=== PATIENT | female | born 1995 | race Hispanic/Latino ===

== ENCOUNTER 2024-10-07 10:23 | Inpatient (IN) | payer SELFPAY ==
[2024-10-07] VITALS (61 sets, daily range): BP systolic 89–112; BP diastolic 46–79; PULSE 103–132; RESP 11–49; TEMP 36.6–36.9; O2SAT 94–100; BMI 25.8
--- NOTE | 2024-10-07 11:02 | EDS_ITS ---
HPI History of Present Illness Chief Complaint: Shortness of Breath Narrative Narrative: Chief complaint and HPI: Cough and flulike symptoms. 29-year-old female who is Panamanian-speaking presents for evaluation of cough and flulike symptoms. Despite blindstitch hemmer, patient is a poor historian. Patient states since March she has had shortness of breath and sore throat. States it is progressively worsening. States she was seen at an outlying facility and diagnosed with pneumonia. On Levaquin. She endorses a pruritic rash that she has had since March. Saw PCP and dermatology in which she was diagnosed with eczema. Review of systems: See HPI Medications: As listed on the chart Allergies: As listed on the chart PFSH: Per chart Vital signs: As listed on the chart. Reviewed. Physical exam: Gen: A&O x3, NAD Head: Normocephalic, atraumatic Eyes: No sclera icterus, conjunctiva clear, PERRL, EOMI ENT: TMs clear BL, dry mucous membranes, posterior oropharynx unremarkable, uvula midline, tonsils mildly enlarged bilaterally, no tonsillar exudates Neck: Trachea midline, No JVD, Full ROM, No meningismus CV: Tachycardic, regular rhythm, no murmurs, no peripheral edema Resp: Lungs CTA BL, no w/r/c, + cough GI: Abd soft, non-distended, non-tender, no r/r/g Musc: Full ROM, no deformity Skin: Warm, dry, eczema to the anterior chest as well as scattered on the arms and legs Neuro: Alert, oriented, grossly intact, sensation intact Psych: Cooperative, appropriate mood and affect [facility] Home Medications ?Medication ?Instructions ?Recorded ?Last Taken ?Type clobetasol 0.05 % topical ointment topical 10/07/24 Un known History famotidine 40 mg tablet 40 mg PO QHS PRN 10/07/24 Un known History levofloxacin 750 mg tablet 750 mg PO DAILY 10/07/24 Un known History loratadine 10 mg tablet (Allergy 10 mg PO DAILY Unknown History Relief (loratadine)) triamcinolone acetonide 0.1 % 1 applic topical BID Unknown History topical cream Allergy/AdvReac Type Severity Reaction Status Date / Time No Known Allergies Allergy Verified 10/07/24 10:28 Social History Smoking Status: Never smoker EXAM Physical Exam Const Vital Signs: 10/07/24 10:24 10/07/24 10:24 10/07/24 11:08 Temperature 98.5 F Temperature Source Temporal Pulse Rate 132 H 108 H Respiratory Rate 26 H 30 H Respiratory Effort Normal Non-Labored Respiratory Depth Normal Respiratory Pattern Normal Blood Pressure 112/65 Blood Pressure Mean 80 Pulse Ox 94 98 Oxygen Delivery Method Room Air 10/07/24 11:15 10/07/24 11:28 10/07/24 11:28 Temperature 98.5 F Temperature Source Oral Pulse Rate 104 H 107 H 104 H Respiratory Rate 26 H 26 H 25 H Respiratory Effort Respiratory Depth Respiratory Pattern Tachypnea Blood Pressure 97/59 L 98/57 L Blood Pressure Mean 71 70 Pulse Ox 98 99 Oxygen Delivery Method Room Air 10/07/24 11:30 10/07/24 11:45 10/07/24 12:00 Temperature 98.2 F Temperature Source Oral Pulse Rate 105 H 104 H 106 H Respiratory Rate 11 L 25 H 24 H Respiratory Effort Respiratory Depth Respiratory Pattern Blood Pressure 98/57 L 99/54 L 99/54 L Blood Pressure Mean 71 67 69 Pulse Ox 100 98 98 Oxygen Delivery Method Room Air 10/07/24 12:00 10/07/24 12:06 10/07/24 12:15 Temperature Temperature Source Pulse Rate 112 H Respiratory Rate 36 H Respiratory Effort Respiratory Depth Respiratory Pattern Blood Pressure 89/46 L 105/63 Blood Pressure Mean 54 76 Pulse Ox Oxygen Delivery Method 10/07/24 12:28 10/07/24 12:30 10/07/24 12:45 Temperature Temperature Source Pulse Rate 111 H 108 H 104 H Respiratory Rate 31 H 35 H 39 H Respiratory Effort Respiratory Depth Respiratory Pattern Blood Pressure 104/65 105/59 L Blood Pressure Mean 77 73 Pulse Ox 97 97 97 Oxygen Delivery Method 10/07/24 13:00 10/07/24 13:00 10/07/24 13:15 Temperature 97.9 F Temperature Source Oral Pulse Rate 104 H 104 H 106 H Respiratory Rate 41 H 24 H 37 H Respiratory Effort Respiratory Depth Respiratory Pattern Blood Pressure 99/59 L 107/67 107/67 Blood Pressure Mean 72 80 79 Pulse Ox 97 97 97 Oxygen Delivery Method Room Air 10/07/24 13:38 10/07/24 13:45 10/07/24 14:00 Temperature Temperature Source Pulse Rate 120 H 110 H 112 H Respiratory Rate 31 H 17 33 H Respiratory Effort Respiratory Depth Respiratory Pattern Blood Pressure Blood Pressure Mean Pulse Ox 98 98 Oxygen Delivery Method 10/07/24 14:15 10/07/24 14:30 10/07/24 14:45 Temperature Temperature Source Pulse Rate 108 H 105 H 103 H Respiratory Rate 40 H 39 H 39 H Respiratory Effort Respiratory Depth Respiratory Pattern Blood Pressure 105/77 Blood Pressure Mean 86 Pulse Ox 98 98 98 Oxygen Delivery Method 10/07/24 15:11 Temperature Temperature Source Pulse Rate 108 H Respiratory Rate 31 H Respiratory Effort Respiratory Depth Respiratory Pattern Tachypnea Blood Pressure Blood Pressure Mean Pulse Ox Oxygen Delivery Method MDM MDM MDM Narrative Medical decision making narrative: 29-year-old female who is Panamanian-speaking presents for evaluation of cough and flulike symptoms. Despite blindstitch hemmer, patient is a poor historian. Recently diagnosed and treated for pneumonia. Differential diagnosis includes but is not limited to pneumonia, viral illness, electrolyte abnormality, PE, bronchitis. On presentation, patient is tachycardic and tachypneic. NS bolus and DuoNeb ordered. Laboratory workup ordered including chest x-ray. CBC with mild leukocytosis 11.5. No anemia. Serum negative. D-dimer elevated at 1.49. Cannot rule out PE. CTA chest ordered. CMP with mild dehydration but no ENRIQUE. Patient has mild transaminitis with AST of 64 and an ALT of 42. No right upper quadrant abdominal pain reported or on physical exam. Strep PCR negative. [place] negative. COVID, flu, RSV negative. Chest x-ray was personally reviewed and interpreted by sd, ED physician. CT of the chest is negative for PE. Patient has multifocal pneumonia. Rocephin and azithromycin ordered. Patient has mild mediastinal lymphadenopathy, nonspecific and potentially reactive. Mild cardiomegaly with small/moderate pericardial effusion. Effusion is 1.8 cm thickness posteriorly. Patient not endorsing any chest pain however given her mild cardiomegaly with effusion we will obtain troponin and BNP. Will obtain sputum culture and blood cultures. On reevaluation, patient's tachycardia has improved. She is still intermittently tachypneic. Patient was updated of all her results and the plan for admission. On chart review, patient has been on Levaquin for 5 days. Failed outpatient management. I spoke with the hospitalist service Dr. Chandra. He recommends the patient be transferred at due to her effusion and asked not having CT surgery available here at [place]. Patient was updated of this change and confirmed understanding. Will reach out to [facility]. I spoke to the transfer center, will start with CT surgery. Lactic acid unremarkable. Troponin and BNP pending at this time. We are still awaiting CT surgery/transfer from [facility]. Patient was signed out to Dr. Silveira. He will await the call from [facility]. Patient updated of the plan thus far. EKG: Interpreted by me/EM physician: EKG shows sinus tachycardia. Heart rate 121. No acute ischemic changes. Diagnostic: Interpreted by me/EM physician: Bilateral pneumonia concern for mild cardiomegaly Impression: 1. Multifocal pneumonia 2. Small/moderate pericardial effusion 3. Mild mediastinal lymphadenopathy 4. Mild transaminitis Lab Data Labs: Laboratory Results - last 24 hr 10/07/24 10/07/24 10/07/24 11:05 11:13 14:25 WBC 11.5 H RBC 4.46 Hgb 12.2 Hct 36.0 L MCV 80.7 L MCH 27.4 MCHC 33.9 RDW Std Deviation 44.9 H RDW Coeff of Prateek 15.5 H Plt Count 404 MPV 10.1 Immature Gran % (Auto) 0.900 Neut % (Auto) 86.8 H Lymph % (Auto) 5.5 L [place] % (Auto) 4.1 Eos % (Auto) 2.4 Baso % (Auto) 0.3 Absolute Neuts (auto) 10.0 H Absolute Lymphs (auto) 0.63 L Nucleated RBC % 0 D-Dimer Quant (PE/DVT) 1.49 H* Sodium 138 Potassium 4.1 Chloride 108 Carbon Dioxide 20.6 L Anion Gap 9 BUN 9 Creatinine 0.58 L Estim Creat Clear Calc 116.01 Est GFR (MDRD) Non-Af 127 BUN/Creatinine Ratio 15.5 Glucose 94 Lactic Acid < 1.0 Calcium 8.2 Total Bilirubin 0.39 AST 64 H ALT 42 H Alkaline Phosphatase 51 Total Protein 8.1 Albumin 3.3 L Globulin 4.8 H Albumin/Globulin Ratio 0.7 L Serum , Qual NEGATIVE Monoscreen Negative Radiography Diagnostic Testing: Clinical Impression(s) from Imaging Studies Chest X-Ray 10/07/24 11:08 IMPRESSION: 1. Hypoinflated exam. Findings are compatible with pulmonary edema or pneumonitis/multifocal pneumonia. Follow-up to radiographic resolution recommended. 2. Additional description as above. Reading Location: [facility] Chest CTA 10/07/24 11:59 IMPRESSION: 1. No pulmonary embolism identified. 2. Findings are most compatible with multifocal pneumonia. 3. Mild cardiomegaly with small/moderate pericardial effusion. 4. Mild mediastinal lymphadenopathy, nonspecific and potentially reactive in the absence of known malignancy. Prominent but technically nonenlarged [id number] axillary and hilar nodes. Correlate with medical history and follow-up as indicated. 5. Additional description as above. Reading Location: [facility] Discharge Plan Triage Chief Complaint: Shortness of Breath ED Provider: Kip Pham Dx/Rx/DC Orders Prescriptions: No Action levofloxacin 750 mg tablet 750 mg PO DAILY famotidine 40 mg tablet 40 mg PO QHS PRN clobetasol 0.05 % ointment topical triamcinolone acetonide 0.1 % cream 1 applic topical BID loratadine [Allergy Relief (loratadine)] 10 mg tablet 10 mg PO DAILY Primary Care Provider: Care Physician,No Primary Referrals: Care Physician,No Primary [Primary Care Provider] - Print Language: Panamanian
--- NOTE | 2024-10-07 11:08 | RAD_ITS ---
PROCEDURE: CHEST PA AND LATERAL (RADCXR), 10/07/2024 REASON FOR EXAM: COUGH TECHNIQUE: PA and lateral views of the chest were obtained. COMPARISON: None FINDINGS: Exam limited by hypoinflation. Heart: Top-normal highest size likely exacerbated by hypoinflation.. Mediastinum: Unremarkable. Lungs/pleura: Hypoinflation with vascular crowding. Patchy interstitial and airspace disease bilaterally, greatest in the and lung perihilar regions bases. No pleural effusion or visible pneumothorax. Bones: Unremarkable. Lines and support devices: None. Other: None. RAD/Chest PA and Lateral IMPRESSION: 1. Hypoinflated exam. Findings are compatible with pulmonary edema or pneumoni tis/multifocal pneumonia. Follow-up to radiographic resolution recommended. 2. Additional description as above. Reading Location: [id number]
--- NOTE | 2024-10-07 11:08 | EKG12_ITS ---
Test Reason : SOB Blood Pressure : */* mmHG Vent. Rate : 121 BPM Atrial Rate : 121 BPM P-R Int : 130 ms QRS Dur : 70 ms QT Int : 324 ms P-R-T Axes : 47 -11 11 degrees QTcB Int : 460 ms Sinus tachycardia Possible Left atrial enlargement Borderline ECG Confirmed by ALEJO PEDRO, CODY ([id number]), editor index EVELYNE HAGEN ([id number]) on 10/08/2024 1:27:06 PM Referred By: Confirmed By: CODY DHILLON MD
[2024-10-07] MEDS: 0.9% Normal Saline (1000mL) 1,000 ML 1000 ML IV (11:19)
[2024-10-07 11:21] LABS: Absolute Lymphocyte Count 0.63 X10^3/uL (0.83-4.51); Basophil# 0.03 X10^3/uL; Basophil% 0.3 % (0-1); Eosinophil# 0.27 X10^3/uL; Eosinophils% 2.4 % (0-5); Hemoglobin 12.2 g/dL (12.0-15.0); Lymphocyte # 0.63 X10^3/ul (0.83-4.51); Lymphocyte % 5.5 % (19-41); Mean Corp Hgb Conc 33.9 g/dL (32-36); Mean Corpuscular Hgb 27.4 pg (27.0-32.0); Mean Corpuscular Volume 80.7 fL (81-99); Mean Platelet Vol. 10.1 fl (6.2-12.0); Monocyte# 0.47 X10^3/uL; Monocyte% 4.1 % (0-10); NRBC Flagged by Analyzer 0 % (0-5); Neutrophil # 9.95 X10^3/uL (2.7-7.7); Neutrophil % 86.8 % (47-70); Platelet Count 404 K/mm3 (150-450); RBC Distribution Width CV 15.5 % (11.6-14.6); RBC Distribution Width SD 44.9 fl (35.1-43.9); Red Blood Count 4.46 M/mm3 (4.2-5.4); White Blood Count 11.5 K/mm3 (4.4-11.0)
[2024-10-07] MEDS: Ipratropium/Albuterol Sulfate 3 ML AMPUL.NEB INHALATION ×2 (11:26→15:10)
[2024-10-07 11:42] LABS: Internal QC Validated? YES +Cl - CLEAR BKGD; Pregnancy, Serum, hCG Quali. NEGATIVE Negative
[2024-10-07 11:55] LABS: D-Dimer Quantitative (DVT/PE) 1.49 FEU/ug/m (0.27-0.49)
--- NOTE | 2024-10-07 11:59 | CT_ITS ---
PROCEDURE: CTA CHEST W/WO CONTRAST (CTCTACHWW), 10/07/2024 REASON FOR EXAM: ASSESS FOR PE TECHNIQUE: CTA chest was performed with IV contrast. Multiplanar reformats and MIP reconstructions were generated. CONTRAST: Isovue 370 VOLUME: 100mL RADIATION DOSE SUMMARY: CTDlvol: 9.50+ 11.95 mGy DLP: 313.79 mGycm One or more dose reduction techniques were used (e.g., Automated exposure control, adjustment of the mA and/or kV according to patient size, use of iterative reconstruction technique). COMPARISON: No prior CT or CTA chest FINDINGS: Heart/pericardium: Mild cardiomegaly. Small/moderate pericardial effusion up to 1.8 cm thickness posteriorly. Aorta: Unremarkable. Pulmonary arteries: Top-normal in caliber.. No pulmonary embolism is identified. Lymph nodes: AP window node, 11 mm short axis. Suspect a subcarinal nodes up to 13 mm short axis, difficult to delineate from the adjacent esophagus. Prominent but nonenlarged hilar nodes prominent but nonenlarged RIGHT [id number]-LEFT axillary nodes up to 13 mm short axis. Lungs/pleura: Multifocal consolidative and ground-glass airspace disease greatest in the bilateral lower lobes, lingula and upper lobes and RIGHT middle lobe to a lesser degree.. No effusion or pneumothorax. Airways: Unremarkable. Chest wall: Unremarkable. Upper abdomen: Grossly unremarkable. Musculoskeletal: Unremarkable. CT/CTA Chest W/WO Contrast IMPRESSION: 1. No pulmonary embolism identified. 2. Findings are most compatible with multifocal pneumonia. 3. Mild cardiomegaly with small/moderate pericardial effusion. 4. Mild mediastinal lymphadenopathy, nonspecific and potentially reactive in th e absence of known malignancy. Prominent but technically nonenlarged [id number]-[id number]-humm-LEFT axillary and hilar nodes. Jontahon elate with medical history and follow-up as indicated. 5. Additional description as above. Reading Location: [id number]
[2024-10-07 12:01] LABS: ALB/GLOB Ratio 0.7 RATIO (0.9-2.4); AST(SGOT) 64 U/L (<=31); Alanine Aminotransfer ALT/SGPT 42 U/L (<=34); Albumin, Serum 3.3 g/dL (3.5-5.0); Alkaline Phosphatase 51 U/L (35-104); Anion Gap 9 (5-15); BUN 9 mg/dL (4-19); BUN/Creat Ratio 15.5 RATIO (10-20); Calcium,Total 8.2 mg/dL (7.6-11.0); Carbon Dioxide 20.6 mmol/L (21.0-32.0); Chloride 108 mmol/L (98-108); Creatinine, Serum 0.58 mg/dL (0.70-1.20); EST Glomerular Filtration Rate 127 (>60); Estimated Creatinine Clearance 116.01 ml/min (50-250); Globulin 4.8 g/dL (2.2-4.2); Glucose 94 mg/dL (70-99); Potassium 4.1 mmol/L (3.3-5.1); Protein, Total 8.1 g/dL (5.9-8.4); Sodium Level 138 mmol/L (133-145); Total Bilirubin 0.39 mg/dL (0.00-1.30)
[2024-10-07 12:24] LABS: Internal QC Validated? YES +Cl - CLEAR BKGD; Monotest Negative (Negative); Record Kit Lot#, Mono 13241430
[2024-10-07] MEDS: Ceftriaxone 2 GM in 0.9% Normal Saline (50mL MB+) 50 ML IV (14:08)
[2024-10-07] MEDS: Azithromycin 500 MG in 0.9% Normal Saline (250mL Bag) 250 ML 255 MG IV (14:55)
[2024-10-07 15:39] LABS: Lactic Acid < 1.0 mmol/L (0.0-2.0)
[2024-10-07 15:53] LABS: Pro- Brain NATRIURETIC PEPTIDE 121 pg/mL (<=450)
[2024-10-07 16:07] LABS: Troponin T High Sensitivity 50 ng/L (<=14)
--- NOTE | 2024-10-07 17:14 | PCA ---
CALLED [facility] @ [phone] FOR AN UPDATE SAID THEY CONSULTED WITH CT SURGERY AND THE HOSPITALIST HAS BEEN PAGED FOR [facility]. THEY WILL CALL BACK AMY. WILL NOT HAVE BED TONIGHT.
--- NOTE | 2024-10-07 17:57 | EKG12_ITS ---
Test Reason : RHYTHM CHANGE Blood Pressure : */* mmHG Vent. Rate : 119 BPM Atrial Rate : 119 BPM P-R Int : 154 ms QRS Dur : 72 ms QT Int : 306 ms P-R-T Axes : 52 -5 11 degrees QTcB Int : 430 ms Sinus tachycardia Possible Left atrial enlargement Borderline ECG Confirmed by ALEJO PEDRO, CODY ([id number]), market editor EVELYNE HAGEN ([id number]) on 10/08/2024 1:29:08 PM Referred By: Confirmed By: CODY DHILLON MD
[2024-10-08] VITALS (39 sets, daily range): BP systolic 89–108; BP diastolic 46–64; PULSE 94–117; RESP 15–40; TEMP 36.1–37.4; O2SAT 95–98; BMI 25.4
--- NOTE | 2024-10-08 08:49 | PCA ---
CALLED [facility] @ [phone] SAID IT WILL NOT BE TODAY AND MOST LIKELY NOT BE TOMORROW OR ANYTIME SOON. THEY HAVE NO BEDS LEAVING ANYTIME SOON.
--- NOTE | 2024-10-08 09:22 | HP.PCM.HOS_ITS ---
HPI - General General Date of Admission: 10/08/24 Date of Service: 10/08/24 Chief Complaint: Cough and flulike symptoms HPI Narrative MARILIN FORD, is a 29 F who presented to [facility] ED on 10/07/2024 with cough and flulike symptoms. Patient reports having similar symptoms in March of last year and does not feel they have fully resolved since then. She was recently seen in outlying facility and diagnosed with pneumonia started on Levaquin. She did not feel like the antibiotic was helping her much. On arrival to the ED she was tachycardic to 110s and hypotensive to the 80s over 50s. She was given 1 L of IV fluids with improvement in blood pressure and heart rate. CTA chest showed no PE did show findings most commendable with multifocal pneumonia, mild cardiomegaly with small to moderate pericardial effusion and mild mediastinal lymphadenopathy. Given the pericardial effusion, plan was made to transfer the patient to [facility] for cardiothoracic surgery services. Patient was accepted by a physician there but no bed was available, so hospitalist here was contacted for admission. I saw the patient at bedside in the ED. Patient had just completed her echocardiogram when I saw her. She was sitting back comfortably in bed in no acute distress. Patient is Portuguese-speaking, occupational health professional service utilized for conversation. She was a fairly poor historian, did not give much detail into the timeline or nature of her symptoms. No other significant medical history noted aside from a pruritic rash that has been present since March that her PCP and dermatology diagnosed as eczema. Patient denies any fevers or chills currently. She continues to report dry cough, denies any sputum production. No other acute concerns at this time. COUNT INCLUDES THE [facility] Medical History no medical history Home Medications ?Medication ?Instructions ?Recorded ?Last Taken ?Type clobetasol 0.05 % topical ointment 1 applic topical BI D SKIN 10/07/24 Unknown History IRRITATION levofloxacin 750 mg tablet 750 mg PO DAILY 10/07/24 Un known History triamcinolone acetonide 0.1 % 1 applic topical BID SKI N 10/07/24 Unknown History topical cream IRRITATION Allergy/AdvReac Type Severity Reaction Status Date / Time No Known Allergies Allergy Verified 10/07/24 10:28 Family History no significant family his Surgical History no surgical history Social History (Updated 10/08/24 @ 11:28 by Kelley Huff household members: family housing: house Smoking Status: Never smoker ROS Constitutional Constitutional: Reports fatigue; Denies chills, fever(s) or weakness ENT HEENT: Reports nasal congestion and sore throat; Denies nasal discharge, post nasal drip or sinus pressure Cardiovascular Cardiovascular: Denies chest pain Respiratory/Chest Respiratory/Chest: Reports cough, shortness of breath at rest and shortness of breath with exertion; Denies productive cough or wheezing Gastrointestinal Gastrointestinal: Denies abdominal pain Musculoskeletal Musculoskeletal: Denies arthralgias or myalgias Neurologic Neurologic: Denies focal weakness, headache(s) or numbness Vital Signs Vital Signs Vital Signs: 10/07/24 10:24 10/07/24 10:24 10/07/24 11:08 Temperature 98.5 F Temperature Source Temporal Pulse Rate 132 H 108 H Respiratory Rate 26 H 30 H Respiratory Effort Normal Non-Labored Respiratory Depth Normal Respiratory Pattern Normal Blood Pressure 112/65 Blood Pressure Mean 80 Pulse Ox 94 98 Oxygen Delivery Method Room Air 10/07/24 11:15 10/07/24 11:28 10/07/24 11:28 Temperature 98.5 F Temperature Source Oral Pulse Rate 104 H 107 H 104 H Respiratory Rate 26 H 26 H 25 H Respiratory Effort Respiratory Depth Respiratory Pattern Tachypnea Blood Pressure 97/59 L 98/57 L Blood Pressure Mean 71 70 Pulse Ox 98 99 Oxygen Delivery Method Room Air 10/07/24 11:30 10/07/24 11:45 10/07/24 12:00 Temperature 98.2 F Temperature Source Oral Pulse Rate 105 H 104 H 106 H Respiratory Rate 11 L 25 H 24 H Respiratory Effort Respiratory Depth Respiratory Pattern Blood Pressure 98/57 L 99/54 L 99/54 L Blood Pressure Mean 71 67 69 Pulse Ox 100 98 98 Oxygen Delivery Method Room Air 10/07/24 12:00 10/07/24 12:06 10/07/24 12:15 Temperature Temperature Source Pulse Rate 112 H Respiratory Rate 36 H Respiratory Effort Respiratory Depth Respiratory Pattern Blood Pressure 89/46 L 105/63 Blood Pressure Mean 54 76 Pulse Ox Oxygen Delivery Method 10/07/24 12:28 10/07/24 12:30 10/07/24 12:45 Temperature Temperature Source Pulse Rate 111 H 108 H 104 H Respiratory Rate 31 H 35 H 39 H Respiratory Effort Respiratory Depth Respiratory Pattern Blood Pressure 104/65 105/59 L Blood Pressure Mean 77 73 Pulse Ox 97 97 97 Oxygen Delivery Method 10/07/24 13:00 10/07/24 13:00 10/07/24 13:15 Temperature 97.9 F Temperature Source Oral Pulse Rate 104 H 104 H 106 H Respiratory Rate 41 H 24 H 37 H Respiratory Effort Respiratory Depth Respiratory Pattern Blood Pressure 99/59 L 107/67 107/67 Blood Pressure Mean 72 80 79 Pulse Ox 97 97 97 Oxygen Delivery Method Room Air 10/07/24 13:38 10/07/24 13:45 10/07/24 14:00 Temperature Temperature Source Pulse Rate 120 H 110 H 112 H Respiratory Rate 31 H 17 33 H Respiratory Effort Respiratory Depth Respiratory Pattern Blood Pressure Blood Pressure Mean Pulse Ox 98 98 Oxygen Delivery Method 10/07/24 14:15 10/07/24 14:30 10/07/24 14:45 Temperature Temperature Source Pulse Rate 108 H 105 H 103 H Respiratory Rate 40 H 39 H 39 H Respiratory Effort Respiratory Depth Respiratory Pattern Blood Pressure 105/77 Blood Pressure Mean 86 Pulse Ox 98 98 98 Oxygen Delivery Method 10/07/24 15:00 10/07/24 15:11 10/07/24 15:15 Temperature Temperature Source Pulse Rate 108 H 108 H 112 H Respiratory Rate 26 H 31 H 29 H Respiratory Effort Respiratory Depth Respiratory Pattern Tachypnea Blood Pressure Blood Pressure Mean Pulse Ox 98 98 Oxygen Delivery Method 10/07/24 15:30 10/07/24 15:45 10/07/24 16:00 Temperature Temperature Source Pulse Rate 117 H 121 H 116 H Respiratory Rate 34 H 23 H 34 H Respiratory Effort Respiratory Depth Respiratory Pattern Blood Pressure 112/76 Blood Pressure Mean 88 Pulse Ox 97 97 96 Oxygen Delivery Method Room Air 10/07/24 16:00 10/07/24 16:04 10/07/24 16:15 Temperature Temperature Source Pulse Rate 117 H 116 H 116 H Respiratory Rate 32 H 29 H 34 H Respiratory Effort Respiratory Depth Respiratory Pattern Blood Pressure 112/76 104/66 Blood Pressure Mean 84 79 Pulse Ox 97 96 96 Oxygen Delivery Method 10/07/24 16:30 10/07/24 16:45 10/07/24 17:22 Temperature Temperature Source Pulse Rate 122 H 121 H Respiratory Rate 27 H 41 H 32 H Respiratory Effort Respiratory Depth Respiratory Pattern Blood Pressure 89/52 L 107/68 Blood Pressure Mean 63 80 Pulse Ox 96 94 96 Oxygen Delivery Method 10/07/24 17:23 10/07/24 17:30 10/07/24 17:45 Temperature Temperature Source Pulse Rate 123 H 122 H 123 H Respiratory Rate 21 H 40 H 29 H Respiratory Effort Respiratory Depth Respiratory Pattern Blood Pressure 97/76 107/61 106/65 Blood Pressure Mean 81 75 76 Pulse Ox 96 96 96 Oxygen Delivery Method 10/07/24 18:00 10/07/24 18:15 10/07/24 18:30 Temperature Temperature Source Pulse Rate 118 H Respiratory Rate 32 H Respiratory Effort Respiratory Depth Respiratory Pattern Blood Pressure 94/65 102/62 107/67 Blood Pressure Mean 75 74 80 Pulse Ox 96 97 Oxygen Delivery Method 10/07/24 18:45 10/07/24 19:00 10/07/24 19:01 Temperature Temperature Source Pulse Rate 114 H 113 H Respiratory Rate 35 H 21 H Respiratory Effort Respiratory Depth Respiratory Pattern Blood Pressure 104/72 101/64 Blood Pressure Mean 82 75 Pulse Ox 97 97 Oxygen Delivery Method 10/07/24 19:15 10/07/24 19:30 10/07/24 20:00 Temperature Temperature Source Pulse Rate 112 H 109 H Respiratory Rate 27 H 21 H Respiratory Effort Respiratory Depth Respiratory Pattern Blood Pressure 96/63 94/68 98/56 L Blood Pressure Mean 73 76 70 Pulse Ox 97 Oxygen Delivery Method 10/07/24 20:15 10/07/24 20:30 10/07/24 20:45 Temperature Temperature Source Pulse Rate 107 H 108 H 108 H Respiratory Rate 41 H 34 H 36 H Respiratory Effort Respiratory Depth Respiratory Pattern Blood Pressure 89/54 L 90/65 95/66 Blood Pressure Mean 63 73 75 Pulse Ox 95 94 Oxygen Delivery Method 10/07/24 21:00 10/07/24 21:15 10/07/24 21:30 Temperature Temperature Source Pulse Rate 108 H 111 H Respiratory Rate 29 H 21 H Respiratory Effort Respiratory Depth Respiratory Pattern Blood Pressure 95/64 99/64 106/79 Blood Pressure Mean 73 76 89 Pulse Ox 97 96 97 Oxygen Delivery Method 10/07/24 21:45 10/07/24 21:46 10/07/24 22:00 Temperature Temperature Source Pulse Rate 119 H Respiratory Rate 17 Respiratory Effort Respiratory Depth Respiratory Pattern Blood Pressure 100/71 101/78 Blood Pressure Mean 82 84 Pulse Ox 97 97 95 Oxygen Delivery Method 10/07/24 22:23 10/07/24 22:30 04/30/25 22:45 Temperature Temperature Source Pulse Rate 118 H 110 H 107 H Respiratory Rate 18 42 H 49 H Respiratory Effort Respiratory Depth Respiratory Pattern Blood Pressure Blood Pressure Mean Pulse Ox 95 97 97 Oxygen Delivery Method 10/07/24 23:00 10/07/24 23:11 10/07/24 23:15 Temperature 98.5 F Temperature Source Oral Pulse Rate 115 H 108 H 108 H Respiratory Rate 24 H 45 H 41 H Respiratory Effort Respiratory Depth Respiratory Pattern Blood Pressure 106/71 106/71 100/65 Blood Pressure Mean 82 81 77 Pulse Ox 98 98 Oxygen Delivery Method 10/07/24 23:30 10/07/24 23:45 10/07/24 23:46 Temperature Temperature Source Pulse Rate 113 H 113 H Respiratory Rate 44 H 45 H Respiratory Effort Respiratory Depth Respiratory Pattern Blood Pressure 112/74 111/74 Blood Pressure Mean 85 85 Pulse Ox Oxygen Delivery Method 10/08/24 00:00 10/08/24 00:15 10/08/24 00:30 Temperature Temperature Source Pulse Rate 115 H 115 H 114 H Respiratory Rate 20 H 40 H 37 H Respiratory Effort Respiratory Depth Respiratory Pattern Blood Pressure 107/62 Blood Pressure Mean 76 Pulse Ox 96 96 97 Oxygen Delivery Method 10/08/24 00:45 10/08/24 01:00 10/08/24 01:15 Temperature Temperature Source Pulse Rate 111 H 109 H 114 H Respiratory Rate 38 H 32 H 25 H Respiratory Effort Respiratory Depth Respiratory Pattern Blood Pressure 99/54 L Blood Pressure Mean 67 Pulse Ox 96 95 95 Oxygen Delivery Method 10/08/24 01:30 10/08/24 01:45 10/08/24 02:00 Temperature Temperature Source Pulse Rate 110 H 104 H 105 H Respiratory Rate 28 H 33 H 36 H Respiratory Effort Respiratory Depth Respiratory Pattern Blood Pressure 93/50 L Blood Pressure Mean 64 Pulse Ox 95 Oxygen Delivery Method 10/08/24 02:15 10/08/24 02:30 10/08/24 02:45 Temperature Temperature Source Pulse Rate 101 H 107 H 106 H Respiratory Rate 27 H 33 H 30 H Respiratory Effort Respiratory Depth Respiratory Pattern Blood Pressure Blood Pressure Mean Pulse Ox Oxygen Delivery Method 10/08/24 03:00 10/08/24 03:15 10/08/24 03:30 Temperature Temperature Source Pulse Rate 111 H 106 H 102 H Respiratory Rate 30 H 27 H 29 H Respiratory Effort Respiratory Depth Respiratory Pattern Blood Pressure 91/60 Blood Pressure Mean 70 Pulse Ox 98 Oxygen Delivery Method 10/08/24 03:45 10/08/24 04:00 10/08/24 04:15 Temperature Temperature Source Pulse Rate 102 H 117 H 101 H Respiratory Rate 27 H 35 H 33 H Respiratory Effort Respiratory Depth Respiratory Pattern Blood Pressure 89/52 L Blood Pressure Mean 63 Pulse Ox Oxygen Delivery Method 10/08/24 04:30 10/08/24 04:45 10/08/24 05:00 Temperature Temperature Source Pulse Rate 103 H 103 H 103 H Respiratory Rate 28 H 28 H 35 H Respiratory Effort Respiratory Depth Respiratory Pattern Blood Pressure 95/46 L Blood Pressure Mean 61 Pulse Ox 95 Oxygen Delivery Method 10/08/24 05:15 10/08/24 05:30 10/08/24 05:45 Temperature Temperature Source Pulse Rate 99 104 H 98 Respiratory Rate 34 H 23 H 34 H Respiratory Effort Respiratory Depth Respiratory Pattern Blood Pressure Blood Pressure Mean Pulse Ox Oxygen Delivery Method 10/08/24 06:00 10/08/24 06:15 10/08/24 06:30 Temperature Temperature Source Pulse Rate 102 H 97 95 Respiratory Rate 32 H 32 H 32 H Respiratory Effort Respiratory Depth Respiratory Pattern Blood Pressure 100/59 L Blood Pressure Mean 71 Pulse Ox Oxygen Delivery Method 10/08/24 06:45 10/08/24 07:00 10/08/24 08:06 Temperature Temperature Source Pulse Rate 100 107 H 97 Respiratory Rate 30 H 23 H 31 H Respiratory Effort Respiratory Depth Respiratory Pattern Blood Pressure 95/52 L Blood Pressure Mean 66 Pulse Ox 98 Oxygen Delivery Method 10/08/24 09:02 Temperature 97.9 F Temperature Source Temporal Pulse Rate 94 Respiratory Rate 33 H Respiratory Effort Respiratory Depth Respiratory Pattern Blood Pressure 89/50 L Blood Pressure Mean 63 Pulse Ox 97 Oxygen Delivery Method Weight Weight: 58.967 kg Body Mass Index (BMI) 25.8 Physical Exam Const alert, oriented x3, no apparent distress and average body habitus Constitutional Narrative: Younger female, Portuguese-speaking, mildly fatigued appearing but otherwise sitting back comfortably in bed, conversing normally, in no acute distress. General Appearance: cooperative and comfortable HEENT normocephalic, head/scalp atraumatic, hearing grossly normal bilaterally, nasal mucous membranes and turbinates normal and moist oral mucous membranes Eyes PERRL, EOMs intact bilaterally and conjunctivae normal Neck full ROM Chest inspection of chest normal Resp normal respiratory effort and no use of accessory muscles Resp Narrative: Breathing comfortably on room air at rest. Mildly decreased breath sounds with bilateral crackles noted in lower lung zones, no wheezing noted. Cardio no murmurs and peripheral pulses 2+ throughout Cardio Narrative: Tachycardic, regular rhythm. GI normal to inspection, nondistended, normoactive bowel sounds, soft to palpation, non-tender and non-distended Back/Spine normal ROM Extremity normal to inspection, full ROM and no pedal edema Skin no rashes or lesions noted Psych mental status grossly normal Results Lab / Micro Data 10/08/24 10:40 10/08/24 10:40 Labs: Laboratory Results - last 24 hr 10/07/24 11:05: WBC 11.5 H, RBC 4.46, Hgb 12.2, Hct 36.0 L, MCV 80.7 L, MCH 27.4, MCHC 33.9, RDW Std Deviation 44.9 H, RDW Coeff of Prateek 15.5 H, Plt Count 404, MPV 10.1, Immature Gran % (Auto) 0.900, Neut % (Auto) 86.8 H, Lymph % (Auto) 5.5 L, [place] % (Auto) 4.1, Eos % (Auto) 2.4, Baso % (Auto) 0.3, Absolute Neuts (auto) 10.0 H, Absolute Lymphs (auto) 0.63 L, Nucleated RBC % 0, D-Dimer Quant (PE/DVT) 1.49 H*, Sodium 138, Potassium 4.1, Chloride 108, Carbon Dioxide 20.6 L, Anion Gap 9, BUN 9, Creatinine 0.58 L, Estim Creat Clear Calc 116.01, Est GFR (MDRD) Non-Af 127, BUN/Creatinine Ratio 15.5, Glucose 94, Calcium 8.2, Total Bilirubin 0.39, AST 64 H, ALT 42 H, Alkaline Phosphatase 51, Total Protein 8.1, Albumin 3.3 L, Globulin 4.8 H, Albumin/Globulin Ratio 0.7 L 10/07/24 11:13: Serum , Qual NEGATIVE, Monoscreen Negative 10/07/24 14:25: Lactic Acid < 1.0, Troponin T High Sens 50 H, NT pro BNP II 121 Micro: Microbiology 10/07/24 11:18 Mucosa - Nose SARS-CoV-2, Influenza & RSV (PCR) - Final 10/07/24 11:18 Mucosa - Throat Streptococcus pyogenes (PCR) - Final Imaging Radiology Impression Chest X-Ray 10/07/24 11:08 IMPRESSION: 1. Hypoinflated exam. Findings are compatible with pulmonary edema or pneumonitis/multifocal pneumonia. Follow-up to radiographic resolution recommended. 2. Additional description as above. Reading Location: [facility] Chest CTA 10/07/24 11:59 IMPRESSION: 1. No pulmonary embolism identified. 2. Findings are most compatible with multifocal pneumonia. 3. Mild cardiomegaly with small/moderate pericardial effusion. 4. Mild mediastinal lymphadenopathy, nonspecific and potentially reactive in the absence of known malignancy. Prominent but technically nonenlarged [id number] axillary and hilar nodes. Correlate with medical history and follow-up as indicated. 5. Additional description as above. Reading Location: [facility] Assessment & Plan Assessment/Plan (1) Multifocal pneumonia: PLAN: Plan Patient is a 29-year-old female who presented to [facility] ED on 10/07/2024 with worsening shortness of breath and flulike symptoms. 1. Suspected multifocal community-acquired pneumonia ? Admit under inpatient status to PCU. CTA chest on admit showed findings most compatible with multifocal pneumonia, mild cardiomegaly with small/moderate pericardial effusion, mild mediastinal lymphadenopathy. COVID/flu/RSV negative. Respiratory PCR panel, sputum culture, blood cultures and urine antigens pending. Presentation seems most consistent with multifocal community-acquired pneumonia. Will treat with IV ceftriaxone and azithromycin for now. Patient not requiring supplemental oxygen. Follow-up infectious workup. If patient remains stable tomorrow, will plan to discharge home and complete course of oral antibiotics at home. 2. Small pericardial effusion ? CTA chest called a small to moderate pericardial effusion. Echo on 10/08 showed a small (less than 1 cm) pericardial effusion with no signs of cardiac tamponade. Initial plan was to transfer to [facility] for further evaluation by cardiothoracic surgery services but given these findings, transfer has been canceled. No need for further inpatient workup, will need repeat echo in the outpatient setting in the next few months. 3. Eczema ? Patient with dry eczema noted on the anterior chest as well as scattered on the arms and legs. Continue home topical treatments. 4. Mildly elevated LFTs ? AST 64, ALT 42, alk phos 51 on admit. No abdominal pain noted. Downtrending on hospital day 2. Will hold on imaging or further infectious workup at this time. 5. Elevated troponin ? Troponin 50 on admit. Echo findings as noted above. No chest pain or EKG changes noted. Strongly suspect due to demand ischemia in setting of community- acquired pneumonia and mild dehydration on admission. No further workup needed at this time. DVT prophylaxis: Lovenox CODE STATUS: Full code, verified Expected disposition: Home, 1 to 2 days Total clinical time spent by myself addressing the patient's medical issues, reviewing all the data, and collaborating with patient's care team: 35 minutes. Charges/Coding Visit Charges Inpatient E&M: 32904 Init Hosp L2
--- NOTE | 2024-10-08 09:31 | ECHOD_ITS ---
Reason For Study Reason For Study: pericardial effusion Procedure This was a 2D Doppler, Color Flow transthoracic echocardiogram. Exam performed portable in ED. Left Ventricle Normal LV size. Left ventricular systolic function is normal. The estimated ejection fraction is 60 %. Normal diastololic function. Right Ventricle Normal RV size. Normal systolic function. Atria Normal left atrium. Normal right atrium. Mitral Valve The mitral valve is structurally normal. No prolapse or stenosis seen. Tricuspid Valve Normal tricuspid valve. Trivial tricuspid valve insufficiency. Unable to estimate RV systolic pressure due to insufficient tricuspid regurgitant envelope. Aortic Valve Trisinus/trileaflet aortic valve. Pulmonic Valve Normal pulmonic valve. Great Vessels Normal sized aortic root. Pericardium/Pleural Small (<1.0 cm) pericardial effusion. There are no echocardiographic indications of cardiac tamponade. MMode/2D Measurements & Calculations LVIDd: 4.5 cm IVSd: 0.78 cm LVOT diam: 2.0 cm LVIDs: 3.1 cm LVPWd: 0.83 cm LVOT area: 3.0 cm2 FS: 31.0 % Ao root diam: 2.6 cm LAV(MOD-bp): 29.9 ml LVAd ap4: 22.4 cm2 LAV(MOD-bp) Indexed: 19.7 ml/m2 LVLd ap4: 7.2 cm LAV(MOD-sp2): 26.1 ml EDV(MOD-sp4): 57.9 ml LAV(MOD-sp4): 31.8 ml EDV(sp4-el): 58.6 ml LVAs ap4: 11.3 cm2 LVLs ap4: 5.9 cm ESV(MOD-sp4): 17.8 ml ESV(sp4-el): 18.3 ml EF(MOD-sp4): 69.2 % EF(sp4-el): 68.8 % SV(MOD-sp4): 40.1 ml SV(sp4-el): 40.3 ml LA A4 area: 14.3 cm2 SI(MOD-sp4): 26.4 ml/m2 LA dimension(2D): 2.9 cm RA A4 area: 8.8 cm2 Time Measurements MV dec time: 0.12 sec Doppler Measurements & Calculations MV E max delvin: 110.4 cm/sec Lat Peak E' Delvin: 16.5 cm/sec Med Peak E' Delvin: 16.9 cm/sec MV A max delvin: 64.3 cm/sec E/E' lat: 6.7 E/E' med: 6.5 MV E/A: 1.7 Ao V2 max: 142.8 cm/sec LV V1 max: 133.7 cm/sec MV dec slope: 897.8 cm/sec2 Ao max P.2 mmHg LV V1 max P.2 mmHg Ao V2 mean: 100.0 cm/sec Ao mean P.6 mmHg Ao V2 VTI: 25.5 cm GEORGI(V,D): 2.8 cm2 PA V2 max: 87.1 cm/sec PA V2 mean: 65.7 cm/sec ECHO/Echo Complete Interpretation Summary The estimated ejection fraction is 60 %. Small (<1.0 cm) pericardial effusion. There are no echocardiographic indications of cardiac tamponade. Structually normal valves Ordering Physician: Fortino Fulton Referring Physician: no pcp Performed By: Norma Bowman RCS
[2024-10-08 10:52] LABS: Hematocrit 36.9 % (37-47); Hemoglobin 12.3 g/dL (12.0-15.0); Mean Corp Hgb Conc 33.3 g/dL (32-36); Mean Corpuscular Hgb 26.9 pg (27.0-32.0); Mean Corpuscular Volume 80.6 fL (81-99); Mean Platelet Vol. 9.6 fl (6.2-12.0); Platelet Count 424 K/mm3 (150-450); RBC Distribution Width CV 15.6 % (11.6-14.6); RBC Distribution Width SD 44.4 fl (35.1-43.9); Red Blood Count 4.58 M/mm3 (4.2-5.4); White Blood Count 9.3 K/mm3 (4.4-11.0)
--- NOTE | 2024-10-08 11:32 | NURSING ---
Pt has tax attorney mahesh on her phone that she is using to interact with staff. She is able to speak some Estonian.
[2024-10-08] MEDS: Lactated Ringers 1,000 ML 150 ML IV (11:33)
[2024-10-08] MEDS: Azithromycin 500 MG in 0.9% Normal Saline (250mL Bag) 250 ML 255 MG IV (12:03)
[2024-10-08] MEDS: Ipratropium/Albuterol Sulfate 3 ML AMPUL.NEB INHALATION ×2 (12:48→19:51)
--- NOTE | 2024-10-08 12:56 | PN.HOSP_ITS ---
Hospitalist Note Ms. Ryan Mittal was evaluated in the Emergency Department at [facility] on 10/07/2024. At the time of evaluation, transfer to a tertiary hospital was felt to be in the patient's best interest due to potential need for cardiothoracic surgery services for management of pericardial effusion. Attempts were made by the Emergency Department and/or the Hospitalist team to get Ms. Ryan Mittal to the appropriate level of care. Although the pt is accepted for transfer to [facility], there are no staffed beds currently available. Given the need for ongoing medical care, Ms. Ryan Mittal will be admitted to [facility] on 10/08/2024, and care will be provided here until [facility] has an available staffed bed. Pt and/or family are aware of the transfer, the reasoning behind the need for transfer, and that until a staffed bed becomes available, we will provide evidence-based care to the best of our abilities, with the limitations of care here being fully addressed.
[2024-10-08 13:03] LABS: AST(SGOT) 64 U/L (<=31); Alanine Aminotransfer ALT/SGPT 35 U/L (<=34); Albumin, Serum 3.2 g/dL (3.5-5.0); Anion Gap 8 (5-15); BUN 6 mg/dL (4-19); BUN/Creat Ratio 10.7 RATIO (10-20); Bilirubin, Direct 0.09 mg/dL (0.00-0.30); Calcium,Total 8.2 mg/dL (7.6-11.0); Carbon Dioxide 21.2 mmol/L (21.0-32.0); Chloride 104 mmol/L (98-108); Creatinine, Serum 0.58 mg/dL (0.70-1.20); EST Glomerular Filtration Rate 127 (>60); Estimated Creatinine Clearance 116.49 ml/min (50-250); Globulin 4.6 g/dL (2.2-4.2); Glucose 86 mg/dL (70-99); Protein, Total 7.7 g/dL (5.9-8.4); Sodium Level 133 mmol/L (133-145); Total Bilirubin 0.42 mg/dL (0.00-1.30)
[2024-10-08] MEDS: Ceftriaxone 2 GM in 0.9% Normal Saline (50mL MB+) 50 ML IV (13:13)
[2024-10-08] MEDS: 0.9% Normal Saline (250mL Bag) 250 ML 15 ML IV (13:13)
[2024-10-08 13:16] LABS: Alkaline Phosphatase 48 U/L (35-104)
[2024-10-08] MEDS: 0.9% Saline Lock 10 ML Syringe IV (21:04)
[2024-10-09] VITALS (7 sets, daily range): BP systolic 95–111; BP diastolic 57–76; PULSE 63–110; RESP 14–18; TEMP 36.3–36.6; O2SAT 96–99
[2024-10-09] MEDS: 0.9% Saline Lock 10 ML Syringe IV (06:02)
[2024-10-09] MEDS: Ipratropium/Albuterol Sulfate 3 ML AMPUL.NEB INHALATION ×2 (06:57→13:15)
[2024-10-09] MEDS: Ceftriaxone 2 GM in 0.9% Normal Saline (50mL MB+) 50 ML IV (09:10)
[2024-10-09] MEDS: Azithromycin 500 MG in 0.9% Normal Saline (250mL Bag) 250 ML 255 MG IV (09:52)
--- NOTE | 2024-10-09 10:38 | DS.PCM_ITS ---
Providers Date of Admission: 10/08/24 Date of Discharge: 10/09/24 Primary Care Physician: No Primary Care Phys Reason For Visit: MULTIFOCAL PNEUMONIA Diagnosis Discharge Diagnosis (1) Multifocal pneumonia: Status: Acute Code(s): J18.9 - Pneumonia, unspecified organism Medications at Discharge Home Medications clobetasol 0.05 % topical ointment 1 applic topical BID SKIN IRRITATION 10/07/24 triamcinolone acetonide 0.1 % topical cream 1 applic topical BID SKIN IRRITATION 10/07/24 levofloxacin 750 mg tablet 750 mg PO DAILY 3 days #3 tabs 10/09/24 prednisone 10 mg tablet See Taper PO DAILY 12 days #30 tabs 10/09/24 Hospital Course Operations None Procedures EKG, Transthoracic echo and - (Chest x-ray, CTA chest) Summary of Care Provided Minutes Spent on Discharge: 35 Hospital Course: Patient is a 29-year-old female who presented to [facility] ED on 10/07/2024 with worsening shortness of breath and flulike symptoms. Hospital course as noted below. Patient discharged home in stable condition on 10/09. 1. Suspected multifocal community-acquired pneumonia versus autoimmune inflammatory lung disease ? Presented with slow progressive shortness of breath over the past several months. CTA chest on admit showed multifocal consolidative and groundglass airspace disease throughout bilaterally. COVID/flu/RSV, respiratory PCR panel, sputum culture, blood cultures and urine antigens negative. Discussed with patient and she apparently was told recently that her autoimmune panel was abnormal and she was referred to a physician allergist immunologist. Given her CT scan findings, small pericardial effusion and recent rash as noted below, highest concern is for inflammatory lung disease secondary to an autoimmune condition. Improved while inpatient with treatment with IV steroids. Did not require any supplemental oxygen on discharge. Will treat the following prednisone taper on discharge: 40 mg x 3 days, then 30 mg x 3 days, then 20 mg x 3 days, then 10 mg x 3 days. Recommend close outpatient follow-up with PCP and physician allergist immunologist. Will send on Levaquin as well to complete course of antibiotics for pneumonia. Recommend repeat chest imaging in the next 4 to 6 weeks. 2. Small pericardial effusion ? CTA chest called a small to moderate pericardial effusion. Echo on 10/08 showed a small (less than 1 cm) pericardial effusion with no signs of cardiac tamponade. Initial plan was to transfer to [facility] for further evaluation by cardiothoracic surgery services but given these findings, transfer has been canceled. Suspect this may be secondary to autoimmune condition as noted above. Treatment as above. Recommend repeat echo in the outpatient setting in the next 4 to 6 weeks. 3. Rash ? Patient with mild rash noted on the anterior chest as well as scattered on the arms and legs. Saw dermatology in the office recently who reportedly suspected this was eczema. Patient reported that it has improved with topical steroids. Continue these on discharge. 4. Mildly elevated LFTs ? AST 64, ALT 42, alk phos 51 on admit. No abdominal pain noted. Downtrending on hospital day 2. Will hold on imaging or further infectious workup at this time. 5. Elevated troponin ? Troponin 50 on admit. Echo findings as noted above. No chest pain or EKG changes noted. Strongly suspect due to demand ischemia in setting of community- acquired pneumonia and mild dehydration on admission. No further workup needed at this time. *Patient was admitted under inpatient status but recovered more quickly than expected and was able to be discharged home on hospital day 2. Total clinical time spent by myself addressing the patient's medical issues, reviewing all the data, and collaborating with patient's care team: 35 minutes. Physical Exam Const alert, oriented x3, no apparent distress and average body habitus Constitutional Narrative: Younger female, Malagasy-speaking, energy improved from admission, sitting back comfortably in bed, conversing normally, in no acute distress. General Appearance: cooperative and comfortable HEENT normocephalic, head/scalp atraumatic, hearing grossly normal bilaterally, nasal mucous membranes and turbinates normal and moist oral mucous membranes Eyes PERRL, EOMs intact bilaterally and conjunctivae normal Neck full ROM Chest inspection of chest normal Resp normal respiratory effort and no use of accessory muscles Resp Narrative: Breathing comfortably on room air at rest. Mildly decreased breath sounds but no crackles or wheezing noted, improved from admission. Cardio regular rate, regular rhythm, no murmurs and peripheral pulses 2+ throughout GI normal to inspection, nondistended, normoactive bowel sounds, soft to palpation, non-tender and non-distended Back/Spine normal ROM Extremity normal to inspection, full ROM and no pedal edema Skin no rashes or lesions noted Psych mental status grossly normal Weight / BMI Weight Weight: 59.5 kg Body Mass Index (BMI) 25.4 ABG / Lab / Microbiology Data 10/08/24 10:40 10/08/24 10:40 Laboratory: Laboratory Results - last 24 hr 10/08/24 10:40: Sodium 133, Potassium 4.0, Chloride 104, Carbon Dioxide 21.2, Anion Gap 8, BUN 6, Creatinine 0.58 L, Estim Creat Clear Calc 116.49, Est GFR (MDRD) Non-Af 127, BUN/Creatinine Ratio 10.7, Glucose 86, Calcium 8.2, Total Bilirubin 0.42, Direct Bilirubin 0.09, AST 64 H, ALT 35, Alkaline Phosphatase 48, Total Protein 7.7, Albumin 3.2 L, Globulin 4.6 H 10/09/24 11:13: TSH 1.180, Free T4 1.20, Free T3 pg/dL 1.2 L Microbiology: Microbiology 10/08/24 21:05 Sputum, Expectorated/Coughed Gram Stain - Final 10/08/24 19:46 Urine, Random Legionella Antigen - Final 10/08/24 19:46 Urine, Random Streptococcus pneumoniae Antigen (M - Final 10/08/24 12:50 Mucosa - Nasopharyngeal Respiratory Panel (PCR) - Final 10/07/24 11:18 Mucosa - Nose SARS-CoV-2, Influenza & RSV (PCR) - Final 10/07/24 11:18 Mucosa - Throat Streptococcus pyogenes (PCR) - Final Radiography Diagnostic Testing: Radiology Impression Echocardiogram 10/08/24 09:31 Interpretation Summary The estimated ejection fraction is 60 %. Small (<1.0 cm) pericardial effusion. There are no echocardiographic indications of cardiac tamponade. Structually normal valves Ordering Physician: Fortino Fulton Referring Physician: no pcp Performed By: Norma Bowman RCS D/C Instructions DC O2, CPAP, BIPAP Needs Home O2 Discharge instructions: No Meaningful Use Info Meaningful Use Meaningful Use Diagnoses (Choose all that apply): None applicable Ischemic Stroke Statin Dosing Therapy Reference: STATIN DOSE THERAPY REFERENCE: * Patients > 75 years receive moderate or high dose statin therapy. * Patients 75 years or YOUNGER should receive HIGH intensity statin dose unless contraindicated. You will be required to document reason for non-treatment if statin daily dose does not meet guidelines. HIGH DOSE STATIN THERAPY DAILY Atorvastatin > than or = to 40 mg Rosuvastatin > than or = to 20 mg Amlodipine + Atorvastatin > than or = to 2.5/40 mg Ezetimibe + Simvastatin 10/80 mg Simvastatin 80mg Discharge Plan Admission Admit Date/Time: 10/08/24 09:26 Primary Reason for Your Visit: Shortness of breath Attending Provider: Fortino Fulton Primary Care Provider: Care Physician,Mariana Primary Instructions Additional Instructions / Restrictions: Take 3 more days of levofloxacin to complete course of antibiotics. Take prednisone (steroid) taper as noted below. Follow-up with your primary care doctor and physician allergist immunologist in the next few weeks. Discharge Orders/Prescriptions Prescriptions: New prednisone 10 mg tablet See Taper PO DAILY 12 Days Qty: 30 0RF Taper: Prednisone Taper 40 mg WITH BREAKFAST for 3 Days and 0 Hour 30 mg WITH BREAKFAST for 3 Days and 0 Hour 20 mg WITH BREAKFAST for 3 Days and 0 Hour 10 mg WITH BREAKFAST for 3 Days and 0 Hour Continued clobetasol 0.05 % ointment 1 applic topical BID triamcinolone acetonide 0.1 % cream 1 applic topical BID levofloxacin 750 mg tablet 750 mg PO DAILY 3 Days Qty: 3 0RF Referrals / Follow Up: Care Physician,No Primary [Primary Care Provider] - Disposition Disposition (needs filled in before D/C Order can be placed): Home, Self Care Charges/Coding Visit Charges Inpatient E&M: 53245 Disch Hosp >30min
--- NOTE | 2024-10-09 10:38 | DCINST_ITS ---
Discharge Instructions Diet Discharge Diet: No restrictions DC O2, CPAP, BIPAP needs Home O2 Discharge instructions: No Dressing / Incision Discharge Activity: No Restrictions Follow Up Care Test Results: Test results from this visit will be discussed in further detail at your follow- up appointment, if applicable. Discharge Plan Admission Admit Date/Time: 10/08/24 09:26 Primary Reason for Your Visit: Shortness of breath Attending Provider: Fortino Fulton Primary Care Provider: Care Physician,No Primary Instructions Additional Instructions / Restrictions: Take 3 more days of levofloxacin to complete course of antibiotics. Take prednisone (steroid) taper as noted below. Follow-up with your primary care doctor and director global market research in the next few weeks. Discharge Orders/Prescriptions Prescriptions: New prednisone 10 mg tablet See Taper PO DAILY 12 Days Qty: 30 0RF Taper: Prednisone Taper 40 mg WITH BREAKFAST for 3 Days and 0 Hour 30 mg WITH BREAKFAST for 3 Days and 0 Hour 20 mg WITH BREAKFAST for 3 Days and 0 Hour 10 mg WITH BREAKFAST for 3 Days and 0 Hour Continued clobetasol 0.05 % ointment 1 applic topical BID triamcinolone acetonide 0.1 % cream 1 applic topical BID levofloxacin 750 mg tablet 750 mg PO DAILY 3 Days Qty: 3 0RF Referrals / Follow Up: Care Physician,No Primary [Primary Care Provider] - Disposition Disposition (needs filled in before D/C Order can be placed): Home, Self Care
[2024-10-09 11:57] LABS: Free T3 1.2 pg/mL (2.18-3.98)
--- NOTE | 2024-10-09 12:04 | CASEMGMT ---
RN CM Assessment Face to Face with patient for initial transition planning/care coordination assessment. Pt is mainly [place]-speaking therefore official iPad cable tool driller was utilized. RN BRANDON introduced self and role at [facility], pt voices understanding. Pt is A&Ox4 and is resting comfortably in bed and is calm. Care providers, pharmacy, and demographics verified. Admitting dx: Multifactorial Pneumonia LACE Strata: 1 PCP: Pt states that she does not have a PCP. SW reports that they will provide the pt with resources printed out in [place] Specialists: Pt states that she sees a Cooking Show Host through [facility] but cannot recall the name Preferred Pharmacy: [facility] Insurance: SP. Arguello from [employer] came into the room directly after this RN CM's assessment. Care Management to follow. Prescription Benefit: none at this time LNOK & Living Arrangements: Pt states that she lives with her mother, sister, MAGALI, and SO. Pt denies wanting to add anyone to her file. Pt denies issues or concerns. ADLs/IADLs: Pt reports that she is entirely independent Transportation: Self, family including sister. Denies concerns DME:[employer]. Denies further uses or needs. Pt is currently 98% on RA. HHC/SNF: Denies hx or needs Pt?s goal: Home Plan: Home with pt family once medically ready. Follow for Rx costs and insurance needs. Pt plans to get established with a PCP after this stay. Pt states that she feels safe returning home @ the time of DC and denies further questions or concerns at this time. CM to follow. Report given to A[employer] CAMP MANAGER CM. Tomy Dias RN, CM
--- NOTE | 2024-10-09 12:49 | CASEMGMT ---
Social Work SW met with pt and spoke with pt regarding community resources. Pt did meet with Saundra from [facility] who will assist pt in applying for Medicaid and financial assistance. SW provided pt with written information on the [facility], Prescription Assistance programs and [employer]. Pt appreciative of information and declines additional concerns. JERRICA Dickerson
--- NOTE | 2024-10-09 14:10 | PHA.DC.MR.R ---
Pharmacy [place] Med Reconciliation Pharmacy Service has performed discharge medication reconciliation for this patient. The patient's discharge medication list was reviewed for discrepancies and discrepancies were resolved. Medications at Discharge Home Medications clobetasol 0.05 % topical ointment 1 applic topical BID SKIN IRRITATION 10/07/24 triamcinolone acetonide 0.1 % topical cream 1 applic topical BID SKIN IRRITATION 10/07/24 levofloxacin 750 mg tablet 750 mg PO DAILY 3 days #3 tabs 10/09/24 prednisone 10 mg tablet See Taper PO DAILY 12 days #30 tabs 10/09/24
== END 2024-10-09 14:18 | disposition home or self-care (01) | DRG 194 ==
LOC: ED 12:25 → PCU 10-08 09:38
PROVIDERS: Admitting Provider Hospitalist; Emergency Provider Surgery; Visit Provider Hospitalist
DX: J18.9 Pneumonia, unspecified organism (principal); I31.39 Other pericardial effusion (noninflammatory); I24.89 Other forms of acute ischemic heart disease; M35.89 Other specified systemic involvement of connective tissue; J98.4 Other disorders of lung; L30.9 Dermatitis, unspecified; E86.0 Dehydration; R94.5 Abnormal results of liver function studies
CPT/HCPCS: 36415; 71046; 71275; 80048; 80053; 80076; 83605; 83880; 84439; 84443; 84481; 84484; 84703; 85025; 85027; 85379; 86308; 87040; 87070; 87205; 87449; 87631; 87633; 87651; 93005; 93306; 94640; 96365; 96367; 97802; 99285; Q9967; A4216; J0696